=== PATIENT | female | born 1960 | race Caucasian/White ===

== ENCOUNTER → 2016-06-16 | Outpatient (CLI) | payer MEDICARE, OTHER ==
[~2016-06-16] MED LIST: ACET50TAOT PO; ALBU17IN INH; AMIT50TA PO; ASPI1TAB PO; AUGM875T27 PO; DICY10CA13 PO; DICY20TA11 PO; DRIS50002 PO; GUAI1TAB PO; MAGN400T5 PO; NEXI40CA PO; NICO21PAT TD; PRED10PA PO; PRED20TA PO; PROBCAP4 PO; REGL10TA6 PO; VITA20008 PO; ZITHTAB PO
--- NOTE | 2016-06-16 16:05 | REP ---
SINUSES, COMPLETE: HISTORY: Right-sided facial pain. Four views were obtained. FINDINGS: There are no air-fluid levels. There is no lysis or sclerosis of the bony architecture surrounding the paranasal sinuses. There is no significant nasal septal deviation. IMPRESSION: Unremarkable paranasal sinuses. Consider paranasal sinus CT if mucosal abnormalities are of clinical concern due to its increased sensitivity in detecting such abnormalities compared to plain film examination. Signed by Sean Trujillo DO 06/16/2016 04:56 P
== END ==
LOC: M LRY 13:56
PROVIDERS: ATTEND Physician Assistant
DX: R51 Headache (principal)
CPT/HCPCS: 70220; G0463

== ENCOUNTER → 2016-06-28 | Outpatient (CLI) | payer MEDICARE, OTHER ==
--- NOTE | 2016-06-28 08:44 | REP ---
MAXILLOFACIAL CT WITHOUT CONTRAST: HISTORY: Right side pain. The right maxillary sinus is hypoplastic. Minimal mucosal thickening is present in the right ethmoid sinus. The remaining sinuses are clear. The osteomeatal units are patent. The middle and inferior nasal turbinates are partially paradoxical. There is alexa bullosa of the right middle nasal turbinate. There is mild deviation of the nasal septum to the left. The cribriform plate, medial preston of the orbits and optic canals are intact. The carotid canals form a segment of the posterolateral preston of the sphenoid sinus. IMPRESSION: Sinus mucosal thickening as described above. Signed by Viktor Kearney MD 06/28/2016 08:56 A
== END ==
LOC: M RAD 07:41
PROVIDERS: ATTEND Physician Assistant
DX: M26.02 Maxillary hypoplasia (principal)

== ENCOUNTER → 2016-07-08 | Outpatient (CLI) | payer MEDICARE, OTHER | LOC: M WUC 12:06 | PROVIDERS: ATTEND Physician Assistant | DX: E55.9 Vitamin D deficiency, unspecified (principal); K22.70 Barrett's esophagus without dysplasia; R10.13 Epigastric pain; K21.9 Gastro-esophageal reflux disease without esophagitis; K58.0 Irritable bowel syndrome with diarrhea; E61.2 Magnesium deficiency; K31.84 Gastroparesis ==

== ENCOUNTER → 2016-07-20 | Outpatient (CLI) | payer MEDICARE, OTHER ==
[2016-07-20 15:28] LABS: BASO # 0.1 K/mm3 (0.0-0.2); BASO % 0.9 % (0.0-1.0); EOS # 0.1 K/mm3 (0.0-0.50); EOS % 0.9 % (0.0-3.0); LARGE UNSTAINED CELL # 0.1 K/mm3 (0.0-0.4); LYMPH # 2.7 K/mm3 (1.5-4.5); LYMPH % 36.5 % (24.0-44.0); MEAN CORPUSCULAR HEMOGLOBIN 30.8 pg (27.0-33.0); MEAN CORPUSCULAR HGB CONC 32.9 g/dl (32.0-36.5); MEAN CORPUSCULAR VOLUME 93.5 fl (80.0-96.0); MONO # 0.4 K/mm3 (0.0-0.8); MONO % 5.6 % (0.0-5.0); NEUTROPHILS # 3.7 K/mm3 (1.8-7.7); PLATELET COUNT, AUTOMATED 279 k/mm3 (150-450); RED CELL DISTRIBUTION WIDTH 12.4 % (11.5-14.5); WHITE BLOOD COUNT 6.9 K/mm3 (4.0-10.0)
[2016-07-20 15:50] LABS: ALBUMIN 3.7 GM/DL (3.2-5.2); ALBUMIN/GLOBULIN RATIO 1.23 (1.00-1.93); ALKALINE PHOSPHATASE 105 U/L (45-117); ALT/SGPT 42 U/L (12-78); ANION GAP 5 MEQ/L (8-16); AST/SGOT 25 U/L (15-37); BILIRUBIN,TOTAL 0.3 MG/DL (0.2-1.0); BLOOD UREA NITROGEN 6 MG/DL (7-18); CARBON DIOXIDE LEVEL 30 MEQ/L (21-32); CHLORIDE LEVEL 106 MEQ/L (98-107); CREATININE FOR GFR 0.95 MG/DL (0.55-1.02); GLOMERULAR FILTRATION RATE > 60.0 (>51); GLUCOSE, FASTING 89 MG/DL (70-105); POTASSIUM SERUM 4.8 MEQ/L (3.5-5.1); SODIUM LEVEL 141 MEQ/L (136-145); TOTAL PROTEIN 6.7 GM/DL (6.4-8.2)
[2016-07-20 16:00] LABS: ERYTHROCYTE SEDIMENTATION RATE 8 mm/hr (0-30)
[2016-07-20 16:40] LABS: FOLATE 16.8 NG/ML; VITAMIN B12 LEVEL 201 PG/ML
[2016-07-21 11:18] LABS: ALBUMIN 4.68 GM/DL (3.29-5.55); ALBUMIN % 60.8 % (55.8-66.1); GAMMA GLOBULIN % 9.2 % (11.1-18.8)
[2016-07-26 00:06] LABS: Lyme Disease IgG/IgM Antibodie <0.91 ISR (0.00-0.90); Lyme Disease IgM Ab Quantitati <0.80 index (0.00-0.79); VITAMIN E LEVEL 14.7 mg/L (5.3-16.8)
== END ==
LOC: M WUC 11:30
PROVIDERS: ATTEND Psychiatry & Neurology Neurology
DX: G50.1 Atypical facial pain (principal); I10 Essential (primary) hypertension; E55.9 Vitamin D deficiency, unspecified

== ENCOUNTER → 2016-08-05 | Outpatient (REF) | payer MEDICARE, OTHER | LOC: M SFHCLERA 13:36 | PROVIDERS: ATTEND Physician Assistant | DX: R22.0 Localized swelling, mass and lump, head (principal) ==

== ENCOUNTER → 2016-11-21 | Outpatient (CLI) | payer MEDICARE, OTHER ==
[~2016-11-21] MED LIST changes: -AUGM875T27 PO; +AUGM875T28 PO
--- NOTE | 2016-11-22 05:53 | REP ---
CHEST, PA AND LATERAL: 11/21/2016. Clinical history: Bronchitis symptoms. Comparison: 06/11/2015. Findings: Two-view show the lung damon well inflated without infiltrate, effusion, atelectasis or mass. The heart, mediastinal and hilar contours are normal. Airway intact. The bony thorax is unremarkable. There are upper abdominal surgical clips again seen. Impression. 1. No acute cardiopulmonary change, stable chest. Signed by Khurram Michel MD 11/22/2016 11:16 A
== END ==
LOC: M LRY 19:31
PROVIDERS: ATTEND Nurse Practitioner Family
DX: J40 Bronchitis, not specified as acute or chronic (principal); J02.0 Streptococcal pharyngitis
CPT/HCPCS: 71020; 87880; 94640; G0463

== ENCOUNTER → 2017-01-14 | Outpatient (CLI) | payer MEDICARE, OTHER ==
[2017-01-14 18:06] LABS: MAGNESIUM LEVEL 2.3 MG/DL (1.8-2.4)
== END ==
LOC: M WUC 11:27
PROVIDERS: ATTEND Physician Assistant
DX: K58.0 Irritable bowel syndrome with diarrhea (principal); E55.9 Vitamin D deficiency, unspecified; R13.10 Dysphagia, unspecified; K31.84 Gastroparesis; K21.9 Gastro-esophageal reflux disease without esophagitis; R12 Heartburn; K22.70 Barrett's esophagus without dysplasia; Z12.11 Encounter for screening for malignant neoplasm of colon

== ENCOUNTER → 2019-03-01 | Outpatient (CLI) | payer MEDICARE, OTHER ==
[~2019-03-01] MED LIST changes: +ACET500T15 PO; -ACET50TAOT PO; -ASPI1TAB PO; +ASPI81TA26 PO; -DRIS50002 PO; +DRIS50003 PO; +NICO21DI3 TD; -NICO21PAT TD
--- NOTE | 2019-03-01 16:01 | REP ---
Clinical: Bilateral foot pain. Technique: AP, lateral, bilateral oblique views of the right left foot. Findings: Osseous structures, joint spaces, and surrounding soft tissues are relatively symmetric and age appropriate. No acute fracture dislocation. No overt arthritic changes. No subcutaneous emphysema or foreign body. Impression: Generalized symmetric age-related changes. Electronically Signed by Jose Alfredo Sorto MD 03/01/2019 03:53 P
--- NOTE | 2019-03-01 16:33 | REP ---
Clinical: Bilateral foot and ankle pain. Technique: AP, lateral, bilateral oblique views of the right and left ankle. Findings: Relatively symmetric generalized age-related changes are appreciated. No overt osteoarthritic changes noted. No significant swelling. No acute fracture or dislocation. Bilateral ankle mortise appear appear normal. Impression: Symmetric generalized age-related changes. Electronically Signed by Jose Alfredo Sorto MD 03/01/2019 04:24 P
== END ==
LOC: M LRY 15:26
PROVIDERS: ATTEND Nurse Practitioner Family
DX: M25.579 Pain in unspecified ankle and joints of unspecified foot (principal)
CPT/HCPCS: 73610; 73630; G0463

== ENCOUNTER → 2019-06-20 | Outpatient (CLI) | payer MEDICARE, OTHER ==
[2019-06-20 13:12] LABS: BASO # 0.1 10^3/uL (0.0-0.2); BASO % 0.9 % (0.0-1.0); EOS # 0.1 10^3/uL (0.0-0.5); EOS % 0.6 % (0.0-3.0); HEMATOCRIT 48.3 % (36.0-47.0); HEMOGLOBIN 15.8 g/dl (12.0-15.5); LYMPH # 3.3 10^3/uL (1.5-5.0); LYMPH % 37.8 % (24.0-44.0); MEAN CORPUSCULAR HGB CONC 32.7 g/dl (32.0-36.5); MEAN CORPUSCULAR VOLUME 94.7 fl (80.0-96.0); MONO # 0.6 10^3/uL (0.0-0.8); MONO % 7.3 % (0.0-5.0); NEUTROPHILS # 4.6 10^3/uL (1.5-8.5); NEUTROPHILS % 53.1 % (36.0-66.0); PLATELET COUNT, AUTOMATED 338 10^3/uL (150-450); WHITE BLOOD COUNT 8.7 10^3/uL (4.0-10.0)
[2019-06-20 13:32] LABS: ALBUMIN 3.6 GM/DL (3.2-5.2); ALT/SGPT 33 U/L (12-78); BILIRUBIN,TOTAL 0.2 MG/DL (0.2-1.0); BLOOD UREA NITROGEN 8 MG/DL (7-18); CALCIUM LEVEL 9.1 MG/DL (8.5-10.1); CARBON DIOXIDE LEVEL 30 MEQ/L (21-32); CHLORIDE LEVEL 105 MEQ/L (98-107); CHOLESTEROL LEVEL 190 MG/DL (<200); CHOLESTEROL RISK RATIO 5.588 (<5); CREATININE FOR GFR 0.95 MG/DL (0.55-1.30); FREE T4 1.18 NG/DL (0.76-1.46); GLOMERULAR FILTRATION RATE > 60.0 (>51); GLUCOSE, FASTING 98 MG/DL (70-100); HDL CHOLESTEROL 34 MG/DL (>40); LDL CHOLESTEROL 82 MG/DL (<100); NON-HDL-C 156 MG/DL; POTASSIUM SERUM 4.5 MEQ/L (3.5-5.1); SODIUM LEVEL 138 MEQ/L (136-145); TOTAL PROTEIN 6.9 GM/DL (6.4-8.2); TRIGLYCERIDES LEVEL 371 MG/DL (<150)
[2019-06-20 13:35] LABS: TOTAL 25(OH) VITAMIN D 15.7 NG/ML (30.0-100.0)
== END ==
LOC: M WUC 09:09
PROVIDERS: ATTEND Physician Assistant
DX: E78.2 Mixed hyperlipidemia (principal); E55.9 Vitamin D deficiency, unspecified; Z13.29 Encounter for screening for other suspected endocrine disorder; I10 Essential (primary) hypertension

== ENCOUNTER → 2020-04-28 | Outpatient (CLI) | payer MEDICARE, OTHER ==
--- NOTE | 2020-04-28 15:42 | REP ---
INDICATION: N95.0 PMB. COMPARISON: Multiple the latest 08/24/2015 TECHNIQUE: Transvesical and transvaginal imaging FINDINGS: The uterus measures 6.1 x 3.7 x 4.7 cm. The parenchymal echo pattern is within normal limits. The endometrial echo complex measures 1.4 cm in thickness and is heterogenous in appearance. There is no free fluid. The right ovary measures 1.7 x 1.3 x 1 cm and is within normal limits. Left ovary measures 1.7 x 1.3 x 1.2 cm and is within normal limits. IMPRESSION: Abnormal endometrium as described above. Correlate clinically. Endometrial sampling may be in order. <Electronically signed by Sean Trujillo > 04/28/20 [id number]
--- NOTE | 2020-04-28 15:59 | REPMRS ---
Patient History The patient states she has not had a clinical breast exam in over a year. Patient is postmenopausal. Family history of breast cancer at age 90 in paternal aunt. No Hormone Replacement Therapy Digital Woman Screen Mammo: April 28, 2020 - Exam #: [id number] Bilateral CC and MLO view(s) were taken. Technologist: RT Dante Prior study comparison: July 15, 2009, bilateral digital mammo screening bilat, performed at . FINDINGS: The breast tissue is almost entirely fat. The Volpara volumetric breast density category is: A. There has been no change in the appearance of the mammogram from the prior studies. There is no interval development of dominant mass, architectural distortion, or grouped microcalcification typical of malignancy. 3-D tomosynthesis shows no additional findings. Assessment: BI-RADS/ACR category 1 mammogram. Negative Mammogram. Recommendation Routine screening mammogram of both breasts in 1 year (for women over age 40). This patient's [facility] Lifetime Breast Cancer RIsk is estimated at 10.9 %. This mammogram was interpreted with the aid of an FDA-approved computer-aided dectection system. Electronically Signed By: Stanley Alexis MD 04/28/20 [id number]
== END ==
LOC: M WHC 12:49
PROVIDERS: ATTEND Specialist
DX: Z12.31 Encounter for screening mammogram for malignant neoplasm of breast (principal); N95.0 Postmenopausal bleeding

== ENCOUNTER → 2020-11-05 | Outpatient (CLI) | payer MEDICARE, OTHER ==
[2020-11-05 16:03] LABS: ALBUMIN 3.7 GM/DL (3.2-5.2); ALT/SGPT 38 U/L (12-78); BILIRUBIN,DIRECT < 0.1 MG/DL (0.0-0.2); BILIRUBIN,TOTAL 0.3 MG/DL (0.2-1.0)
== END ==
LOC: M LAB 14:55
PROVIDERS: ATTEND Nurse Practitioner Family
DX: K22.70 Barrett's esophagus without dysplasia (principal); R94.5 Abnormal results of liver function studies; R14.0 Abdominal distension (gaseous); K21.9 Gastro-esophageal reflux disease without esophagitis; K44.9 Diaphragmatic hernia without obstruction or gangrene; R19.7 Diarrhea, unspecified; R11.0 Nausea

== ENCOUNTER → 2021-05-05 | Outpatient (REF) | payer MEDICARE, OTHER ==
[~2021-05-05] MED LIST changes: -DICY20TA11 PO; +DICY20TA20 PO
== END ==
LOC: M SFHCWAGY 11:14
PROVIDERS: ATTEND Specialist
DX: N95.0 Postmenopausal bleeding (principal)

== ENCOUNTER 2021-11-05 15:27 | Emergency (ER) | payer MEDICARE, OTHER ==
[~2021-11-05] VITALS: Ht 165.1 cm; Wt 91.1 kg
[2021-11-05 15:28] VITALS: BP 124/82
[2021-11-05] MEDS ORDERED: guaiFENesin ER 600 MG TAB PO STA (18:36)
[2021-11-05] MEDS ORDERED: BENZONATATE 100MG CAPSULE PO ONE (18:40)
[2021-11-05 18:45] LABS: RSV AMPLIFICATION NEGATIVE (NEGATIVE)
[2021-11-05] MEDS ORDERED: PSEU120T19 PO (19:21)
[2021-11-05] MEDS ORDERED: BENZ200C70 PO (19:21)
[2021-11-05] MEDS ORDERED: FLON1SPR NARES (19:21)
== END 2021-11-05 19:59 | disposition home or self-care (01) ==
LOC: M ED 15:27
DX: J06.9 Acute upper respiratory infection, unspecified (principal); I73.00 Raynaud's syndrome without gangrene; F17.200 Nicotine dependence, unspecified, uncomplicated; Z79.899 Other long term (current) drug therapy; Z79.82 Long term (current) use of aspirin; Z88.8 Allergy status to other drugs, medicaments and biological substances; Z87.442 Personal history of urinary calculi; Z87.19 Personal history of other diseases of the digestive system; Z86.718 Personal history of other venous thrombosis and embolism; Z90.49 Acquired absence of other specified parts of digestive tract; Z98.890 Other specified postprocedural states

== ENCOUNTER → 2022-08-01 | Outpatient (REF) | payer MEDICARE, OTHER ==
[~2022-08-01] MED LIST changes: +BENZ200C70 PO; +FLON1SPR NARES; +PSEU120T19 PO
== END ==
LOC: M SFHCWAGY 15:22
PROVIDERS: ATTEND Specialist
DX: Z01.419 Encounter for gynecological examination (general) (routine) without abnormal findings (principal)

== ENCOUNTER → 2022-12-14 | Outpatient (CLI) | payer MEDICARE, OTHER ==
[~2022-12-14] MED LIST changes: +DICY-61 PO; -DICY10CA13 PO
[2022-12-14 09:55] LABS: APPEARANCE, URINE HAZY (CLEAR); BACTERIA, URINE AUTO NEGATIVE (NEGATIVE); BILIRUBIN, URINE AUTO NEGATIVE (NEGATIVE); BLOOD, URINE BLOOD NEGATIVE (NEGATIVE); CALCIUM OXALATE CRYSTALS SMALL; COLOR, URINE YELLOW (YELLOW); GLUCOSE, URINE (UA) AUTO NEGATIVE (NEGATIVE); KETONE, URINE AUTO TRACE mg/dL (NEGATIVE); LEUKOCYTE ESTERASE, URINE AUTO NEGATIVE (NEGATIVE); MUCUS, URINE SMALL (NEGATIVE); NITRITE, URINE AUTO NEGATIVE (NEGATIVE); PROTEIN, URINE AUTO NEGATIVE (NEGATIVE); RBC, URINE AUTO 3 /HPF (0-3); SPECIFIC GRAVITY URINE AUTO 1.019 (1.002-1.035); SQUAMOUS EPITHELIAL CELL UR AU 1 /HPF (0-6); WBC, URINE AUTO 2 /HPF (0-3)
[2022-12-14 09:57] LABS: BASO # 0.1 10^3/uL (0.0-0.2); BASO % 0.8 % (0.0-1.0); EOS % 0.4 % (0.0-3.0); HEMATOCRIT 47.3 % (36.0-47.0); HEMOGLOBIN 15.2 g/dl (12.0-15.5); LYMPH # 2.5 10^3/uL (1.5-5.0); LYMPH % 33.4 % (24.0-44.0); MEAN CORPUSCULAR HEMOGLOBIN 30.8 pg (27.0-33.0); MEAN CORPUSCULAR HGB CONC 32.1 g/dl (32.0-36.5); MEAN CORPUSCULAR VOLUME 95.9 fl (80.0-96.0); MONO # 0.6 10^3/uL (0.0-0.8); MONO % 7.6 % (2.0-8.0); NEUTROPHILS # 4.2 10^3/uL (1.5-8.5); NEUTROPHILS % 57.5 % (36.0-66.0); PLATELET COUNT, AUTOMATED 310 10^3/uL (150-450); RED BLOOD COUNT 4.93 10^6/uL (4.00-5.40); WHITE BLOOD COUNT 7.3 10^3/uL (4.0-10.0)
[2022-12-14 10:14] LABS: FOLATE 11.4 NG/ML (>5.4); VITAMIN B12 LEVEL 190 PG/ML (211-911)
[2022-12-14 10:15] LABS: ALBUMIN 3.8 G/DL (3.2-5.2); ALKALINE PHOSPHATASE 102 U/L (46-116); ALT/SGPT 28 U/L (7.0-40); AST/SGOT 20 U/L (<34); BILIRUBIN,TOTAL 0.4 MG/DL (0.3-1.2); BLOOD UREA NITROGEN 13 MG/DL (9-23); CALCIUM LEVEL 8.9 MG/DL (8.3-10.6); CARBON DIOXIDE LEVEL 29 MMOL/L (20-31); CHLORIDE LEVEL 107 MMOL/L (98-107); CHOLESTEROL LEVEL 163 MG/DL (<200); CHOLESTEROL RISK RATIO 4.28 (<5); CREATININE FOR GFR 0.93 MG/DL (0.55-1.30); GLOMERULAR FILTRATION RATE > 60.0 (>45); GLUCOSE, FASTING 104 MG/DL (74-106); LDL CHOLESTEROL 92.8 MG/DL (<100); POTASSIUM SERUM 4.6 MMOL/L (3.5-5.1); SODIUM LEVEL 141 MMOL/L (136-145); THYROID STIMULATING HORMONE 1.222 uIU/ML (0.55-4.78); TOTAL 25(OH) VITAMIN D 16.8 NG/ML (20.0-100.0); TOTAL PROTEIN 6.4 G/DL (5.7-8.2); TRIGLYCERIDES LEVEL 161 MG/DL (<150)
[2022-12-14 11:00] LABS: HEMOGLOBIN A1c 5.6 % (4.0-6.0)
== END ==
LOC: M LAB 08:38
PROVIDERS: ATTEND Physician Assistant
DX: Z00.00 Encounter for general adult medical examination without abnormal findings (principal); E07.9 Disorder of thyroid, unspecified; E78.00 Pure hypercholesterolemia, unspecified

== ENCOUNTER → 2023-07-28 | Outpatient (CLI) | payer MEDICARE, OTHER | LOC: M RAD 09:03 | PROVIDERS: ATTEND Physician Assistant | DX: F17.210 Nicotine dependence, cigarettes, uncomplicated (principal) ==

== ENCOUNTER → 2023-12-25 | Outpatient (REF) | payer OTHER ==
[~2023-12-25] MED LIST changes: +BACI1TAB20 PO; +COLE625T PO; +MAGN400C PO; +NEUR300C PO; +ONDA-282 PO; +TUMS500C PO; +VITA100093 PO
[2023-12-25 18:43] LABS: BASO # 0.1 10^3/uL (0.0-0.2); BASO % 0.6 % (0.0-1.0); EOS % 0.5 % (0.0-3.0); HEMATOCRIT 46.9 % (36.0-47.0); HEMOGLOBIN 15.3 g/dl (12.0-15.5); LYMPH # 2.9 10^3/uL (1.5-5.0); LYMPH % 37.1 % (24.0-44.0); MEAN CORPUSCULAR HEMOGLOBIN 31.1 pg (27.0-33.0); MEAN CORPUSCULAR HGB CONC 32.6 g/dl (32.0-36.5); MEAN CORPUSCULAR VOLUME 95.3 fl (80.0-96.0); MONO # 0.5 10^3/uL (0.0-0.8); MONO % 6.6 % (2.0-8.0); NEUTROPHILS # 4.3 10^3/uL (1.5-8.5); NEUTROPHILS % 54.8 % (36.0-66.0); PLATELET COUNT, AUTOMATED 344 10^3/uL (150-450); RED BLOOD COUNT 4.92 10^6/uL (4.00-5.40); WHITE BLOOD COUNT 7.8 10^3/uL (4.0-10.0)
[2023-12-25 19:05] LABS: BLOOD UREA NITROGEN 12 MG/DL (9-23); CALCIUM LEVEL 9.4 MG/DL (8.3-10.6); CARBON DIOXIDE LEVEL 29 MMOL/L (20-31); CHLORIDE LEVEL 108 MMOL/L (98-107); CREATININE FOR GFR 0.96 MG/DL (0.55-1.30); GLOMERULAR FILTRATION RATE > 60.0 (>45); GLUCOSE, FASTING 90 MG/DL (74-106); POTASSIUM SERUM 5.3 MMOL/L (3.5-5.1); SODIUM LEVEL 140 MMOL/L (136-145)
== END ==
LOC: M SFHCLERA 11:21
PROVIDERS: ATTEND Family Medicine
DX: Z01.818 Encounter for other preprocedural examination (principal)

== ENCOUNTER 2023-12-31 14:47 | Emergency (ER) | payer OTHER ==
[~2023-12-31] VITALS: Ht 165.1 cm; Wt 87.7 kg
[~2023-12-31 14:47] MED LIST changes: +THERTAB52 PO
[2023-12-31 18:03] VITALS: BP 125/78; TEMP 98.9; O2SAT 97
[2023-12-31] MEDS ORDERED: NIRM1TAB13 PO (18:19)
== END 2023-12-31 18:54 | disposition home or self-care (01) ==
LOC: M ED 14:47
DX: R55 Syncope and collapse (principal); U07.1 COVID-19; Z88.7 Allergy status to serum and vaccine; Z88.8 Allergy status to other drugs, medicaments and biological substances; Z79.1 Long term (current) use of non-steroidal anti-inflammatories (NSAID); Z79.810 Long term (current) use of selective estrogen receptor modulators (SERMs); Z79.899 Other long term (current) drug therapy

== ENCOUNTER 2024-01-11 07:54 | Day surgery (SDC) | payer MEDICARE, OTHER ==
[~2024-01-11] VITALS: Ht 165.1 cm; Wt 88.5 kg
[~2024-01-11 07:54] MED LIST changes: +ACETAMINOPHEN 1000MG 100ML IV BAG As Ordered ONE; +LIDOCAINE 2% 100MG/5ML SDV (FOR ANES.) As Ordered ONE; +MIDAZOLAM INJ 2MG/2ML VIAL As Ordered ONE; +NIRM1TAB13 PO; +ONDANSETRON 4MG 2ML VIAL As Ordered ONE; +fentaNYL 100 MCG/2 ML INJECTION As Ordered ONE; +propofoL 200 MG/20 ML VIAL As Ordered ONE
[2024-01-11 08:30] LABS: HEMATOCRIT 43.4 % (36.0-47.0); HEMOGLOBIN 14.6 g/dl (12.0-15.5); MEAN CORPUSCULAR HEMOGLOBIN 31.4 pg (27.0-33.0); MEAN CORPUSCULAR HGB CONC 33.6 g/dl (32.0-36.5); MEAN CORPUSCULAR VOLUME 93.3 fl (80.0-96.0); PLATELET COUNT, AUTOMATED 325 10^3/uL (150-450); RED BLOOD COUNT 4.65 10^6/uL (4.00-5.40); WHITE BLOOD COUNT 5.8 10^3/uL (4.0-10.0)
[2024-01-11] MEDS: LR 1,000 ML IV SCH (09:02)
[2024-01-11] MEDS: LIDOCAINE 1% SDV 30ML VIAL As Ordered ONE (10:11)
[2024-01-11 10:37] VITALS: BP 140/74; TEMP 98.2; O2SAT 95
== END 2024-01-11 11:10 | disposition home or self-care (01) ==
LOC: M SDC 07:54
PROVIDERS: ATTEND Specialist
DX: N84.0 Polyp of corpus uteri (principal); N95.0 Postmenopausal bleeding; Z88.8 Allergy status to other drugs, medicaments and biological substances; Z88.7 Allergy status to serum and vaccine; Z79.899 Other long term (current) drug therapy; F17.210 Nicotine dependence, cigarettes, uncomplicated
CPT/HCPCS: 36415; 58558; 84132; 85027; 88305; J0131; J2250; J3010

== ENCOUNTER → 2024-08-14 | Outpatient (REF) | payer OTHER ==
[~2024-08-14] MED LIST changes: -ACETAMINOPHEN 1000MG 100ML IV BAG As Ordered ONE; -LIDOCAINE 2% 100MG/5ML SDV (FOR ANES.) As Ordered ONE; -MIDAZOLAM INJ 2MG/2ML VIAL As Ordered ONE; -ONDANSETRON 4MG 2ML VIAL As Ordered ONE; -fentaNYL 100 MCG/2 ML INJECTION As Ordered ONE; -propofoL 200 MG/20 ML VIAL As Ordered ONE
== END ==
LOC: M SFHCLERA 11:27
PROVIDERS: ATTEND Internal Medicine
DX: R10.31 Right lower quadrant pain (principal)

== ENCOUNTER → 2024-08-14 | Outpatient (CLI) | payer OTHER ==
[2024-08-14 13:09] LABS: APPEARANCE, URINE CLEAR (CLEAR); BACTERIA, URINE AUTO 1+ (NEGATIVE); BILIRUBIN, URINE AUTO NEGATIVE (NEGATIVE); BLOOD, URINE BLOOD 1+ (NEGATIVE); COLOR, URINE YELLOW (YELLOW); GLUCOSE, URINE (UA) AUTO NEGATIVE (NEGATIVE); KETONE, URINE AUTO NEGATIVE (NEGATIVE); LEUKOCYTE ESTERASE, URINE AUTO TRACE (NEGATIVE); NITRITE, URINE AUTO NEGATIVE (NEGATIVE); PROTEIN, URINE AUTO NEGATIVE (NEGATIVE); RBC, URINE AUTO 7 /HPF (0-3); SQUAMOUS EPITHELIAL CELL UR AU 2 /HPF (0-6); UROBILINOGEN, URINE AUTO 0.2 mg/dL (0.0-2.0); WBC, URINE AUTO 1 /HPF (0-3)
[2024-08-14 13:12] LABS: BASO # 0.1 10^3/uL (0.0-0.2); BASO % 1.1 % (0.0-1.0); EOS % 0.5 % (0.0-3.0); HEMATOCRIT 46.5 % (36.0-47.0); HEMOGLOBIN 15.2 g/dl (12.0-15.5); LYMPH # 3.1 10^3/uL (1.5-5.0); LYMPH % 40.3 % (24.0-44.0); MEAN CORPUSCULAR HEMOGLOBIN 31.3 pg (27.0-33.0); MEAN CORPUSCULAR HGB CONC 32.7 g/dl (32.0-36.5); MEAN CORPUSCULAR VOLUME 95.7 fl (80.0-96.0); MONO # 0.6 10^3/uL (0.0-0.8); MONO % 7.4 % (2.0-8.0); NEUTROPHILS # 3.8 10^3/uL (1.5-8.5); NEUTROPHILS % 50.4 % (36.0-66.0); PLATELET COUNT, AUTOMATED 318 10^3/uL (150-450); RED BLOOD COUNT 4.86 10^6/uL (4.00-5.40); WHITE BLOOD COUNT 7.6 10^3/uL (4.0-10.0)
[2024-08-14 13:27] LABS: HEMOGLOBIN A1c 5.5 % (4.0-6.0)
[2024-08-14 13:43] LABS: FOLATE 6.4 NG/ML (>5.4); TOTAL 25(OH) VITAMIN D 17.6 NG/ML (20.0-100.0)
[2024-08-14 13:49] LABS: ALBUMIN 3.7 G/DL (3.2-5.2); BILIRUBIN,TOTAL 0.4 MG/DL (0.3-1.2); CALCIUM LEVEL 9.4 MG/DL (8.3-10.6); CHOLESTEROL RISK RATIO 4.85 (<5); CREATININE FOR GFR 0.97 MG/DL (0.55-1.30); GLOMERULAR FILTRATION RATE 65.7 (>45); HDL CHOLESTEROL 41.8 MG/DL (>40); NON-HDL-C 161.2 MG/DL; POTASSIUM SERUM 4.8 MMOL/L (3.5-5.1); TOTAL PROTEIN 6.7 G/DL (5.7-8.2)
== END ==
LOC: M RAD 12:26
PROVIDERS: ATTEND Internal Medicine
DX: R10.31 Right lower quadrant pain (principal)

== ENCOUNTER → 2025-02-06 | Outpatient (REF) | payer MEDICARE, OTHER ==
[2025-02-08 14:43] LABS: HPV APTIMA Not Detected (Not Detected)
== END ==
LOC: M PLALAB 11:34
PROVIDERS: ATTEND Specialist
DX: Z12.2 Encounter for screening for malignant neoplasm of respiratory organs (principal); R87.610 Atypical squamous cells of undetermined significance on cytologic smear of cervix (ASC-US)
CPT/HCPCS: 87624; G0123

== ENCOUNTER → 2025-02-20 | Outpatient (REF) | payer OTHER | LOC: M SFHCLERA 14:24 | PROVIDERS: ATTEND Internal Medicine | DX: Z53.9 Procedure and treatment not carried out, unspecified reason (principal) ==

== ENCOUNTER → 2025-03-03 | Outpatient (CLI) | payer MEDICARE, OTHER | LOC: M RAD 10:45 | PROVIDERS: ATTEND Internal Medicine | DX: R91.8 Other nonspecific abnormal finding of lung field (principal) ==